=== PATIENT | male | born 1955 | race Caucasian/White ===

== ENCOUNTER 2020-05-18 07:08 | Day surgery (SDC) | payer BC ==
--- NOTE | 2020-05-16 07:04 | EKG ---
Test Date: 2020-05-15 Test Time: 14:23:55 Lumber Hacker: HERBERT MEASUREMENT RESULTS: Intervals: Rate: 68 WA: 130 QRSD: 126 QT: 422 QTc: 448 [place]: P: 28 WA: 130 QRS: 77 T: 27 INTERPRETIVE STATEMENTS: Normal sinus rhythm Right bundle branch block Abnormal ECG No previous ECG available for comparison Electronically Signed On 05-16-20 07:02:27 CDT by Beck Christine
[2020-05-18] MEDS ORDERED: LIDOCAINE 1% W/EPI 1:100,000 MDV 20 ML VIAL ONE ×2 (07:35→08:36)
[2020-05-18] MEDS ORDERED: LIDOCAINE 1% W/EPI 1:100,000 10 ML VIAL ONE (07:50)
[2020-05-18] MEDS ORDERED: Ringers Lactate 1,000 ML IV ONE (07:53)
[2020-05-18] MEDS ORDERED: KETOROLAC 30 MG/ML INJ ONE (08:33)
[2020-05-18] MEDS ORDERED: propofoL 200 MG/20 ML VIAL IV ONE (08:33)
[2020-05-18] MEDS ORDERED: MIDAZOLAM HCL 2 MG/2 ML INJ ONE (08:33)
[2020-05-18] MEDS ORDERED: FENTANYL CITR 100 MCG/2 ML ONE (08:33)
[2020-05-18] MEDS ORDERED: LIDOCAINE 2% MPF 5 ML VIAL ONE (08:33)
[2020-05-18] MEDS ORDERED: dexAMETHasone 10 MG/ML VIAL ONE (08:33)
[2020-05-18] MEDS ORDERED: ONDANSETRON 4 MG/2 ML VIAL ONE (08:34)
--- NOTE | 2020-05-18 10:05 | P.BOP ---
Preoperative diagnosis: BCC nose Postoperative diagnosis: same Primary procedure: WLE with FS Secondary procedure: closure, complex Food Mixer: NONE,NONE Estimated blood loss: <5ml Specimen: nose, suture 12 oclock Findings: negative margins Anesthesia: General Complications: None Implants: none Fluids & blood products: see lucy. record Transferred to: Recovery Room Condition: Good
--- NOTE | 2020-05-18 12:02 | OP ---
Date of Procedure: 05/18/2020 Surgeon: Maranda Holland MD Preoperative Diagnosis: Basal cell carcinoma, nose. Postoperative Diagnosis: Basal cell carcinoma, nose. Procedure Performed: Wide local excision with frozen section and complex closure. Final size of the defect, 12 x 10 mm. Length of final closure 3 cm. Indication For Procedure: Mr. Elliott presented with a biopsy confirmed basal cell carcinoma of the nasal tip/supratip. We discussed risks, benefits and alternatives. There was no gross tumor, but the decision was made to proceed with excision to confirm pathologic cure. Various reconstructive options were discussed with the patient prior to the procedure and final reconstruction. Decision was deferred to intraoperative decision pending findings on resection. Description Of Procedure In Detail: The patient was brought to the operating room. He was placed under general anesthesia via LMA. The basal skin was cleaned with alcohol and the nose was injected with 3 mL 1% Lidocaine with epinephrine. The face was prepped with Betadine and draped in a sterile fashion. The area of interest was cleaned and examined. The existing scar was 5 mm in diameter. A 3 to 4 mm gross margin was designed around this scar. Needlepoint electrocautery was used to incise full-thickness through the skin and the skin was elevated off the cartilaginous nasal tip leaving the perichondrium behind. The specimen was marked with a suture at the superior most aspect indicating 12 o'clock and was sent to pathology for frozen section analysis. The area around the defect was sharply undermined to allow for mobility and later closure. The wound was then packed with Adaptic gauze until the frozen section margin was confirmed. All peripheral and deep margins were negative. In the center of the specimen, there were multiple nests of residual basal cell carcinoma. The defect was examined and measured with a 12 x 10 mm full-thickness skin defect of the central nasal tip and supranasal area. Various reconstruction options were considered. Due to the thickness of the patient's skin, a skin graft or allograft was felt to be a poor cosmetic decision. The circular/slightly oval defect was approximated in a medial lateral direction with Vicryl sutures. Burow's triangle superiorly and inferiorly were excised to allow for smoother, better closure of the skin, essentially converting the round defect into a vertical defect. The skin was closed in a running fashion using 5-0 fast absorbing gut. The skin was cleaned and dried. A triple antibiotic ointment was applied to the incision. The procedure was concluded. All counts were reported as correct. The patient was returned to care of anesthesia for awakening, extubation in the operating room, which proceeded without difficulty. The patient was transferred to the recovery room and will be discharged home later today with routine wound instructions are given to the patient's family. They can contact Dr. Holland for any concern. ELIZABETH/STUART Voice ID: [id number] Report ID: [id number] MTDD
[2020-05-18 12:09] VITALS: BP 124/64; TEMP 96.8
[2020-05-18 12:11] VITALS: O2SAT 10
== END 2020-05-18 11:35 | disposition home health service (06) ==
LOC: OR 07:08
PROVIDERS: ATTEND Otolaryngology
PROC: 0HB1XZZ Excision of Face Skin, External Approach (ICD-10-PCS; principal; 2020-05-18 08:30)
DX: C44.311 Basal cell carcinoma of skin of nose (principal); E66.3 Overweight; Z20.822 Contact with and (suspected) exposure to COVID-19
CPT/HCPCS: 11642; 93005; 88331; 88332; 88305; U0003; J2704; J2250; J3010; J1100; J7120; J2405